=== PATIENT | female | born 1995 | race Caucasian/White ===

== ENCOUNTER 2021-06-28 13:41 | Emergency (ER) | payer SELFPAY ==
[~2021-06-28] VITALS: Ht 157.5 cm; Wt 75.6 kg
[2021-06-28] MEDS ORDERED: IPRATRPIUM/ALBUTEROL 0.5/2.5MG 3 ML NEBU. NEB ONE (14:00)
[2021-06-28] MEDS ORDERED: RACEPINEPHRINE 2.25% 0.5 ML NEBU. ONE (14:03)
[2021-06-28] MEDS ORDERED: IV NORMAL SALINE 1000ML BAG 1,000 ML IV ONE ×2 (14:30→17:00)
--- NOTE | 2021-06-28 14:43 | PHYS DOC ---
Past Medical History Past Surgical History: No Surgical History (BRANDON CORRALES MD) Adult General Chief Complaint Chief Complaint: SHORTNESS OF BREATH HPI HPI The patient is a 26-year-old female without clear past medical history. She presents for evaluation of shortness of breath and pleuritic chest discomfort, with unclear time of onset but most likely earlier today. Patient is extremely anxious and tearful and is unable to provide me with detailed history. Her breathing sounds somewhat stridorous with exhalation only, but the stridor is distractible; during examination maneuvers or when I ask a question she is not stridorous. Oxygen saturations 100% on room air. Patient is somewhat tachycardic but, as above, is extremely anxious and tearful. Patient is unable to provide a detailed review of systems due to severe anxiety. (BRANDON CORRALES MD) Review of Systems Review of Systems Unable to obtain secondary to extremely anxious patient. (BRANDON CORRALES MD) Current Medications Current Medications Current Medications Medications (Trade) Dose Ordered Sig/Jasper Start Time Stop Time Status Last Admin Dose Admin Albuterol/ Ipratropium (Duoneb) 3 ml 1X ONCE 06/28/21 14:00 06/28/21 14:01 DC 06/28/21 14:05 3 ML Dexamethasone Sodium Phosphate (Decadron) 10 mg 1X ONCE 06/28/21 15:00 06/28/21 15:01 DC 06/28/21 15:25 10 MG Epinephrine (S2 Racepinephrine) 0.5 ml STK-MED ONCE 06/28/21 14:03 06/28/21 14:03 DC Info (CONTRAST GIVEN -- Rx MONITORING) 1 each PRN DAILY PRN 06/28/21 16:00 06/30/21 15:59 Iohexol (Omnipaque 350 Mg/ml) 100 ml 1X ONCE 06/28/21 16:00 06/28/21 16:01 DC 06/28/21 16:12 100 ML Lorazepam (Ativan Inj) 1.5 mg 1X ONCE 06/28/21 17:00 06/28/21 17:02 DC 06/28/21 17:17 1.5 MG Ondansetron HCl (Zofran) 4 mg 1X ONCE 06/28/21 18:15 06/28/21 18:16 DC 06/28/21 18:34 4 MG Sodium Chloride 1,000 ml @ 1,000 mls/hr 1X ONCE 06/28/21 17:00 06/28/21 17:59 DC 06/28/21 17:15 1,000 MLS/HR (JAZZMINE DELANEY MD) Allergies Allergies Allergies Coded Allergies Type Severity Reaction Last Updated Verified Penicillins Allergy Severe 06/28/21 Yes (JAZZMINE DELANEY MD) Physical Exam Physical Exam 26-year-old female appearing nontoxic and in no acute distress, but severely anxious. Head is normocephalic and atraumatic. Neck is supple and nontender. Oropharynx is moist. No posterior oropharyngeal erythema, tonsillar exudates or swelling or uvular deviation. Patient is speaking comfortably in full sentences in a normal tone of voice. Lungs are clear to auscultation at all stations. There is a normal S1 and S2 without rubs or gallops and capillary refill is appropriate, less than 2 seconds globally. Abdomen is soft, nontender nondistended. Skin is warm and dry without cyanosis, clubbing or edema. Psychiatrically, the patient demonstrates appropriate mood and affect and is alert. She is very anxious. Evaluation of the extremities is remarkable for BUEs and BLEs neurovascularly intact distally with strength 5 out of 5, sensation intact light touch in all nerve distributions, radial, DP and PT pulses 2+ and equal bilaterally, capillary refill less than 2 seconds, hands and feet warm and well-perfused. No dependent peripheral edema distally. No calf tenderness or swelling bilaterally. Homans test is negative bilaterally. (BRANDON CORRALES MD) Current Patient Data Vital Signs Vital Signs Date Time Temp Pulse Resp B/P (MAP) Pulse Ox O2 Delivery O2 Flow Rate FiO2 06/28/21 18:12 120 26 149/89 (109) 99 06/28/21 14:06 Room Air 06/28/21 13:41 98.7 98.7 (JAZZMINE DELANEY MD) Lab Values Laboratory Tests Test 06/28/21 14:58 06/28/21 15:03 06/28/21 15:37 06/28/21 15:40 White Blood Count 8.6 x10^3/uL (4.0-11.0) Red Blood Count 4.84 x10^6/uL (3.50-5.40) Hemoglobin 14.4 g/dL (12.0-15.5) Hematocrit 43.9 % (36.0-47.0) Mean Corpuscular Volume 91 fL (79-100) Mean Corpuscular Hemoglobin 30 pg (25-35) Mean Corpuscular Hemoglobin Concent 33 g/dL (31-37) Red Cell Distribution Width 14.4 % (11.5-14.5) Platelet Count 180 x10^3/uL (140-400) Neutrophils (%) (Auto) 81 % (31-73) H Lymphocytes (%) (Auto) 13 % (24-48) L Monocytes (%) (Auto) 5 % (0-9) Eosinophils (%) (Auto) 0 % (0-3) Basophils (%) (Auto) 1 % (0-3) Neutrophils # (Auto) 6.9 x10^3/uL (1.8-7.7) Lymphocytes # (Auto) 1.1 x10^3/uL (1.0-4.8) Monocytes # (Auto) 0.4 x10^3/uL (0.0-1.1) Eosinophils # (Auto) 0.0 x10^3/uL (0.0-0.7) Basophils # (Auto) 0.1 x10^3/uL (0.0-0.2) Prothrombin Time 12.6 SEC (11.7-14.0) Prothrombin Time INR 0.9 (0.8-1.1) Activated Partial Thromboplast Time 23 SEC (24-38) L Sodium Level 143 mmol/L (136-145) Potassium Level 4.1 mmol/L (3.5-5.1) Chloride Level 106 mmol/L (98-107) Carbon Dioxide Level 24 mmol/L (21-32) Anion Gap 13 (6-14) Blood Urea Nitrogen 15 mg/dL (7-20) Creatinine 0.8 mg/dL (0.6-1.0) Estimated GFR (Cockcroft-Gault) 88.1 BUN/Creatinine Ratio 19 (6-20) Glucose Level 102 mg/dL (70-99) H Lactic Acid Level 1.1 mmol/L (0.4-2.0) Calcium Level 9.2 mg/dL (8.5-10.1) Total Bilirubin 0.3 mg/dL (0.2-1.0) Aspartate Amino Transferase (AST) 20 U/L (15-37) Alanine Aminotransferase (ALT) 43 U/L (14-59) Alkaline Phosphatase 58 U/L (46-116) Troponin I High Sensitivity 5 ng/L (4-50) MG-Pzb-N-Type Natriuretic Peptide 44 pg/mL (0-124) Total Protein 7.5 g/dL (6.4-8.2) Albumin 4.2 g/dL (3.4-5.0) Albumin/Globulin Ratio 1.3 (1.0-1.7) Thyroid Stimulating Hormone (TSH) 1.969 uIU/mL (0.358-3.74) Serum Test, Qualitative Negative (NEG) SARS-CoV-2 Antigen (Rapid) Negative (NEGATIVE) Urine Opiates Screen Neg (NEG) Urine Methadone Screen Neg (NEG) Urine Barbiturates Neg (NEG) Urine Phencyclidine Screen Neg (NEG) Urine Amphetamine/Methamphetamine Neg (NEG) Urine Benzodiazepines Screen Neg (NEG) Urine Cocaine Screen Neg (NEG) Urine Cannabinoids Screen Pos (NEG) Urine Ethyl Alcohol Neg (NEG) POC Urine HCG, Qualitative Hcg negative (Negative) Test 06/28/21 15:48 06/28/21 18:28 O2 Saturation 99 % (92-99) 97 % (92-99) Arterial Blood pH 7.51 (7.35-7.45) H 7.46 (7.35-7.45) H Arterial Blood pCO2 at Patient Temp 20 mmHg (35-46) *L 29 mmHg (35-46) L Arterial Blood pO2 at Patient Temp 151 mmHg (85-108) H 87 mmHg (85-108) Arterial Blood HCO3 16 mmol/L (21-28) L 20 mmol/L (21-28) L Arterial Blood Base Excess -5 mmol/L (-3-3) L -3 mmol/L (-3-3) FiO2 21% room air 21% room air Laboratory Tests 06/28/21 14:58 Laboratory Tests 06/28/21 14:58 (JAZZMINE DELANEY MD) EKG EKG Sinus rhythm, rate 134, no acute ST elevation or depression, MS 88, QRS 86, QTc 430, EP interpretation. Nonischemic tracing, intervals appropriate. (BRANDON CORRALES MD) Radiology/Procedures Radiology/Procedures [] (BRANDON CORRALES MD) Course & Med Decision Making Course & Med Decision Making Overall scenario seems most consistent with anxiety/panic but given upper airway sounds (though I think they are probably volitional and not organic in etiology), have opted to try racemic epi and dexamethasone and will obtain large work-up as noted. We will give some Ativan for anxiety and a liter of fluids. Will reevaluate serially to determine next best steps. (BRANDON CORRALES MD) Course & Med Decision Making Accepted patient care at shift change. Patient has received upper fluids with improvement of tachycardia, still is around 10 5-1 10. Per patient's significant other she states that she normally runs around that range. Offered admission for possible echo and cardiology consult. Patient declined states she does not want to stay in the hospital. Discussed return precautions and follow-up. Patient and significant other agreed with (JAZZMINE DELANEY MD) Dragon Disclaimer Dragon Disclaimer This electronic medical record was generated, in whole or in part, using a voice recognition dictation system. (BRANDON CORRALES MD) Departure Departure Impression: Primary Impression: Pleuritic chest pain Additional Impression: Shortness of breath Disposition: 01 HOME / SELF CARE / HOMELESS Condition: STABLE Referrals: JASSON MILLER MD Patient Instructions: Nonspecific Tachycardia Problem Qualifiers BRANDON CORRALES MD Jun 28, 2021 14:43 JAZZMINE DELANEY MD Jun 28, 2021 19:53
[2021-06-28] MEDS ORDERED: DEXAMETHASONE SOD PHOS 4 MG/ML VIAL IVP ONE (15:00)
[2021-06-28 15:16] LABS: BASO # 0.1 x10^3/uL (0.0-0.2); BASO % 1 % (0-3); EOS % 0 % (0-3); HEMATOCRIT 43.9 % (36.0-47.0); HEMOGLOBIN 14.4 g/dL (12.0-15.5); LYMPH # 1.1 x10^3/uL (1.0-4.8); LYMPH % 13 % (24-48); MEAN CORPUSCULAR HEMOGLOBIN 30 pg (25-35); MEAN CORPUSCULAR HGB CONC 33 g/dL (31-37); MEAN CORPUSCULAR VOLUME 91 fL (79-100); MONO # 0.4 x10^3/uL (0.0-1.1); MONO % 5 % (0-9); NEUT # 6.9 x10^3/uL (1.8-7.7); NEUT % 81 % (31-73); PLATELET COUNT 180 x10^3/uL (140-400); RED BLOOD COUNT 4.84 x10^6/uL (3.50-5.40); RED CELL DISTRIBUTION WIDTH 14.4 % (11.5-14.5); WHITE BLOOD COUNT 8.6 x10^3/uL (4.0-11.0)
--- NOTE | 2021-06-28 15:20 | RAD ---
XR CHEST 1V History: Short of air. Comparison: None. Technique: AP radiograph of the chest. Findings: The lungs are adequately and symmetrically inflated. No airspace consolidation, pleural effusion or p neumothorax. The cardiomediastinal silhouette and pulmonary vasculature are within normal limits. No acute osseous abnormality. Soft tissues are unremarkable. Impression: 1. No acute cardiopulmonary process. Electronically signed by: Bradley Menezes MD (06/28/2021 3:18 PM) [id number]
[2021-06-28 15:29] LABS: PROTHROMBIN TIME PATIENT 12.6 SEC (11.7-14.0)
[2021-06-28 15:32] LABS: CALCIUM 9.2 mg/dL (8.5-10.1); CREATININE 0.8 mg/dL (0.6-1.0); GFR 88.1; POTASSIUM 4.1 mmol/L (3.5-5.1)
[2021-06-28 15:38] LABS: ALBUMIN 4.2 g/dL (3.4-5.0); ALBUMIN/GLOBULIN RATIO 1.3 (1.0-1.7); TOTAL BILIRUBIN 0.3 mg/dL (0.2-1.0); TOTAL PROTEIN 7.5 g/dL (6.4-8.2)
--- NOTE | 2021-06-28 15:40 | EKG ---
[facility] [address] [place] [address] Test Date: 2021-06-28 Test Time: 13:53:16 Pat Name: MYRA MATTHEWS Department: Room: Gender: F Freight Coordinator: : 1995 Requested By: BRANDON CORRALES Order Number: [id number] Reading MD: Garcia Smith MD Measurements Intervals [place] Rate: 134 P: 59 TX: 88 QRS: 52 QRSD: 86 T: 50 QT: 288 QTc: 430 Interpretive Statements SINUS TACHYCARDIA Electronically Signed On 07-01-2021 11:04:12 MOVING VAN DRIVER by Garcia Smith MD
[2021-06-28 15:46] LABS: BASE EXCESS ABG -5 mmol/L (-3-3); HCO3 ABG 16 mmol/L (21-28); PO2 ABG 151 mmHg (85-108); SAT O2 ABG 99 % (92-99)
[2021-06-28 15:51] LABS: FIO2 ABG 21% ROOM AIR; PCO2 ABG 20 mmHg (35-46)
[2021-06-28 15:52] LABS: PREG TEST PT QUAL NEGATIVE (NEG)
[2021-06-28] MEDS ORDERED: IOHEXOL 350 MG/ML 100 ML VIAL. IV ONE (16:00)
[2021-06-28] MEDS ORDERED: CONTRAST GIVEN. MC PRN (16:00)
--- NOTE | 2021-06-28 16:50 | RAD ---
EXAMINATION: CTA chest and CT scan of the neck performed with contrast. Technique: Axial images with coronal and sagittal reconstructions with MIP technique are performed of chest with angiogram protocol of the chest in addition to axial, coronal and sagittal reconstruction s performed for from a CT scan of the catheter neck with contrast.. 100 mL of Omnipaque 350 adminis tered intravenously. One or more of the following radiation dose reduction techniques was used: automated exposure control , adjustment of mA and/or KV according to patient size, and/or utilization of iterative reconstructio n technique. HISTORY: 26 years Female Reason: SOA, intermittent stridor COMPARISON: None. FINDINGS: CT neck: The trachea and the proximal airway in the larynx and pharynx appear patent. There is no mass or flui d collection seen along the airway or surrounding soft tissues. The thyroid the gland appear unremark able. The submandibular and parotid glands appear unremarkable. There is no significant lymphadenopathy or soft tissue mass in the neck identified. The orbits and the paranasal sinuses appear unremarkable. The osseous structures appear unremarkable. The jugular veins and the carotid arteries are opacified and appear patent. CTA CHEST: There is good opacification of the pulmonary arteries with no filling defects to suggest pulmonary em bolism. The thoracic aorta is normal in caliber. There is no compression to the airway with a vascula r lesion or other airway abnormality identified. There are no luminal masses or mucous plugging withi n the tracheobronchial tree identified. The lungs demonstrate no significant consolidation, mass or suspicious nodule. The heart size is normal. No pericardial or pleural effusion. There is no mediastinal mass or lymphadenopathy seen. No hilar or axillary lymphadenopathy. Sections in the upper abdomen appear grossly unremarkable. The osseous structures appear unremarkable. IMPRESSION: CT neck: Unremarkable exam. CTA CHEST: Unremarkable exam. Electronically signed by: Mika Garcia MD (06/28/2021 4:47 PM) [id number]
[2021-06-28 17:01] LABS: BARBITURATES NEG (NEG); BENZODIAZEPINES NEG (NEG); CANNABINOIDS POS (NEG); COCAINE NEG (NEG); METHADONE NEG (NEG); OPIATES NEG (NEG); PHENCYCLIDINE NEG (NEG)
[2021-06-28 17:07] LABS: AMPHETAMINE/METHAMPHETAMINE NEG (NEG)
[2021-06-28 18:12] VITALS: BP 149/89
[2021-06-28] MEDS ORDERED: ONDANSETRON PF 4 MG/2 ML VIAL. IVP ONE (18:15)
[2021-06-28 18:27] LABS: BASE EXCESS ABG -3 mmol/L (-3-3); HCO3 ABG 20 mmol/L (21-28); PCO2 ABG 29 mmHg (35-46); PO2 ABG 87 mmHg (85-108); SAT O2 ABG 97 % (92-99)
[2021-06-28 18:28] LABS: FIO2 ABG 21% ROOM AIR
== END 2021-06-28 20:30 | disposition home or self-care (01) ==
LOC: ER 13:41
DX: R07.81 Pleurodynia (principal); R06.02 Shortness of breath; R00.0 Tachycardia, unspecified; Z88.0 Allergy status to penicillin
CPT/HCPCS: 36415; 36600; 70491; 71045; 71275; 80053; 80307; 81025; 82805; 83605; 83880; 84443; 84484; 84703; 85025; 85610; 85730; 87040; 87426; 93005; 94640; 96361; 96374; 96375; 96376; 99285; J1100; J2060; J2405; J7030; Q9967